=== PATIENT | male | born 1965 | race Caucasian/White ===

== ENCOUNTER 2018-07-05 10:38 | Emergency (ER) | payer BC, OTHER ==
[2018-07-05] MEDS ORDERED: IPRATROPIUM/ALBUTEROL 3 ML DEYVIAL IH ONE (11:32)
--- NOTE | 2018-07-05 11:37 | EDPHY ---
H & P Time Seen by Provider: 07/05/18 10:52 HPI/ROS: HPI Shortness of breath, cough. 52-year-old male by private vehicle. This patient reports he had an influenza like syndrome developed about 3 weeks ago. This included malaise, muscle aches and joint aches and cough. He reports that he got over this. He reports however that he has been traveling a lot by airplane to [facility]. He reports that he has had a mild residual cough but more feeling short of breath. He denies any associated chest pain. He has not had a fever. ROS: Constitutional: No fever, no chills. No weakness. Eyes: No discharge. No changes in vision. ENT: No sore throat. No nasal congestion or rhinorrhea. Respiratory: As above. Cardiac: No chest pain, no palpitations. Gastrointestinal: No abdominal pain, no vomiting, no diarrhea. Genitourinary: No hematuria. No dysuria or increased frequency with urination. Musculoskeletal: No back pain. No neck pain. No myalgias or arthralgias. Skin: No rashes. Neurological: No headache. No focal weakness or altered sensation. Past medical history: Denies. Social history: Nonsmoker. Here by himself. No alcohol. As above. Physical Exam: General Appearance: Alert, no distress. This patient is responding to questions appropriately and in full sentences. This patient appears well- hydrated and well-nourished. Eyes: Pupils equal and round no pallor or injection. No lid edema, erythema or injection. Respiratory: There are no retractions, lungs are clear to auscultation with good air movement bilaterally. No tachypnea. Cardiovascular: Regular rate and rhythm. No murmur. Neurological: Motor sensory function is grossly intact. Cranial nerves are normal. Gait is normal. Skin: Warm and dry, no rashes. Musculoskeletal: Neck is supple and nontender. Extremities are symmetrical. All joints range without pain or impingement. Psychiatric: No agitation. No depression. Database: EKG: EKG time is 12:13 p.m.; EKG shows a narrow complex normal sinus rhythm with a ventricular rate of 74. The ME, QRS, QT intervals are within normal limits. There are no ST-T wave changes indicative of ischemic or injury pattern. No evidence of right heart strain. Interpreted by me. Imaging: Chest x-ray PA and lateral; cardiac mediastinal silhouette is unremarkable. No evidence of infiltrate or pneumothorax. Mild bronchitis. No other acute cardiopulmonary disease process noted. Procedures: Emergency department course: Triage vital signs reviewed. He is moderately hypertensive. Vital signs are otherwise normal. The patient's presentation is likely secondary to a residual bronchitis after an initial influenza like illness. However his history of traveling is concerning and his complaint of shortness of breath is concerning. Cardiac workup including D-dimer testing ordered. The patient endorses. 12:20 p.m., the patient was re-evaluated, results of his emergency department workup discussed with him. These results are reassuring. Cardiac etiology, thrombo embolic disease are unlikely. The patient does feel comfortable going home. I discussed management of bronchitis with him. I will prescribe him an albuterol inhaler. I do not feel he requires antibiotics at this time. Follow- up and return to emergency department precautions reviewed with him. He feels comfortable going home. All of his questions were answered. He was discharged from the emergency department in good condition. Differential Diagnosis: The differential diagnosis on this patient includes but is not limited to bronchitis. Pulmonary embolism, acute coronary syndrome, congestive heart failure, pneumonia, pneumothorax unlikely. This represents a partial list of diagnoses considered. These considerations are based on history, physical exam , past history, reassessment and diagnostic testing. Smoking Status: Never smoked Constitutional: Initial Vital Signs Temperature (C) 36.8 C 07/05/18 10:44 Heart Rate 74 07/05/18 10:44 Respiratory Rate 16 07/05/18 10:44 Blood Pressure 153/92 H 07/05/18 10:44 O2 Sat (%) 96 07/05/18 10:44 O2 Delivery Mode Room Air Allergies/Adverse Reactions: No Known Allergies Allergy (Unverified 07/05/18 10:44) Home Medications: Medication Instructions Recorded Advil 07/05/18 Albuterol [Proventil Inhaler HFA 2 puffs IH Q2-4PRN PRN #1 mdi 07/05/18 (*)] Medical Decision Making - Diagnostics Imaging Results: Imaging Impressions Chest X-Ray 07/05/18 10:54 Impression: Airways disease. No pneumonia. - Data Points Laboratory Results: Laboratory Results 07/05/18 11:41 07/05/18 11:41 07/05/18 07/05/1819 11:44 11:41 11:41 WBC RBC Hgb Hct MCV MCH MCHC RDW Plt Count MPV Neut % (Auto) Lymph % (Auto) [place] % (Auto) Eos % (Auto) Baso % (Auto) Nucleat RBC Rel Count Absolute Neuts (auto) Absolute Lymphs (auto) Absolute Monos (auto) Absolute Eos (auto) Absolute Basos (auto) Absolute Nucleated RBC Immature Gran % Immature Gran # D-Dimer < 0.27 ug/mLFEU ug/mLFEU (0.00-0.50) Sodium 136 mEq/L mEq/L (135-145) Potassium 4.6 mEq/L mEq/L (3.5-5.2) Chloride 105 mEq/L mEq/L (97-110) Carbon Dioxide 22 mEq/l mEq/l (22-31) Anion Gap 9 mEq/L mEq/L (6-14) BUN 13 mg/dL mg/dL (7-23) Creatinine 0.8 mg/dL mg/dL (0.7-1.3) Estimated GFR > 60 Glucose 100 mg/dL mg/dL (70-100) Calcium 9.7 mg/dL mg/dL (8.5-10.4) POC Troponin I 0.01 ng/mL ng/mL (0.00-0.08) 07/05/18 11:41 WBC 10.64 10^3/uL H 10^3/uL (3.80-9.50) RBC 4.73 10^6/uL 10^6/uL (4.40-6.38) Hgb 14.8 g/dL g/dL (13.7-17.5) Hct 43.7 % % (40.0-51.0) MCV 92.4 fL fL (81.5-99.8) MCH 31.3 pg pg (27.9-34.1) MCHC 33.9 g/dL g/dL (32.4-36.7) RDW 11.9 % % (11.5-15.2) Plt Count 344 10^3/uL 10^3/uL (150-400) MPV 10.1 fL fL (8.7-11.7) Neut % (Auto) 76.7 % H % (39.3-74.2) Lymph % (Auto) 14.8 % L % (15.0-45.0) [place] % (Auto) 4.9 % % (4.5-13.0) Eos % (Auto) 2.8 % % (0.6-7.6) Baso % (Auto) 0.5 % % (0.3-1.7) Nucleat RBC Rel Count 0.0 % % (0.0-0.2) Absolute Neuts (auto) 8.17 10^3/uL H 10^3/uL (1.70-6.50) Absolute Lymphs (auto) 1.57 10^3/uL 10^3/uL (1.00-3.00) Absolute Monos (auto) 0.52 10^3/uL 10^3/uL (0.30-0.80) Absolute Eos (auto) 0.30 10^3/uL 10^3/uL (0.03-0.40) Absolute Basos (auto) 0.05 10^3/uL 10^3/uL (0.02-0.10) Absolute Nucleated RBC 0.00 10^3/uL 10^3/uL (0-0.01) Immature Gran % 0.3 % % (0.0-1.1) Immature Gran # 0.03 10^3/uL 10^3/uL (0.00-0.10) D-Dimer Sodium Potassium Chloride Carbon Dioxide Anion Gap BUN Creatinine Estimated GFR Glucose Calcium POC Troponin I Medications Given: Discontinued Medications Albuterol/Ipratropium (Duoneb) 3 ml IH EDNOW ONE Stop: 07/05/18 11:33 Last Admin: 07/05/18 11:49 Dose: 3 ml Point of Care Test Results: Chemistry 07/05/18 11:44 POC Troponin I 0.01 ng/mL ng/mL (0.00-0.08) Departure - Departure Disposition: Home, Routine, Self-Care Clinical Impression: Bronchitis Condition: Good Instructions: Acute Bronchitis (ED) Additional Instructions: Read and follow provided instructions. Follow-up with your primary care physician in 1-2 days for re-evaluation. Albuterol inhaler: 1-2 puffs every 2-4 hours as needed for cough and sensation of shortness of breath. Return to the emergency department for worsening symptoms, worsening cough, high fever, difficulty breathing or other serious concerns. Referrals: NONE *PRIMARY CARE P,. [Primary Care Provider] - As per Instructions Prescriptions: Albuterol [Proventil Inhaler HFA (*)] 2 puffs IH Q2-4PRN PRN #1 mdi PRN Reason: Sob/Dyspnea
[2018-07-05 11:54] LABS: PLATELET COUNT 344 10^3/uL (150-400)
--- NOTE | 2018-07-05 12:37 | ASMTCMCOM ---
CM Note CM Note Notes: Pt. noted with no PCP and would like [facility] referral. Insurance information in the system is incorrect, pt. stated that he has had difficulty with [facility] because it is a different division. Pt provided with [facility]/PCP scheduling numbers and number to CM office if he needs additional assistance with scheduling. Date Signed: 07/05/2018 12:37 PM Electronically Signed By:Robert Diaz LCSW
[2018-07-05 12:43] VITALS: BP 140/80
--- NOTE | 2018-07-05 13:40 | ASMTCMCOM ---
CM Note CM Note Notes: Pt insurance information updated. Appointment made at [facility], Dr. Genao. July 07, with check in time of 2:40. CM available as needed. Date Signed: 07/05/2018 01:40 PM Electronically Signed By:Robert Diaz LCSW
--- NOTE | 2018-07-05 15:31 | CPEKG ---
Test Reason : OPEN Blood Pressure : / mmHG Vent. Rate : 074 BPM Atrial Rate : 074 BPM P-R Int : 150 ms QRS Dur : 103 ms QT Int : 391 ms P-R-T Axes : 053 053 008 degrees QTc Int : 434 ms Sinus rhythm Confirmed by Marlo Diaz ([id number] on 07/05/2018 3:30:43 PM Referred By: Marlo Diaz Confirmed By:Marlo Diaz
== END 2018-07-05 12:54 | disposition home or self-care (01) ==
DX: J40 Bronchitis, not specified as acute or chronic (principal)
CPT/HCPCS: 84484-ER